=== PATIENT | male | born 1980 | race Caucasian/White ===

== ENCOUNTER 2020-01-04 18:17 | Emergency (ER) | payer SELFPAY ==
[~2020-01-04] VITALS: Ht 177.8 cm; Wt 91.0 kg
[2020-01-04 19:55] VITALS: BP 127/79
== END 2020-01-04 20:03 | disposition home or self-care (01) ==
LOC: ER 18:17
DX: L03.115 Cellulitis of right lower limb (principal); E11.9 Type 2 diabetes mellitus without complications
CPT/HCPCS: 99283

== ENCOUNTER 2020-02-20 18:58 | Emergency (ER) | payer SELFPAY ==
[~2020-02-20] VITALS: Ht 177.8 cm; Wt 94.0 kg
[2020-02-20 19:07] VITALS: BP 135/79
[2020-02-20] MEDS ORDERED: BACITRACIN ZINC OINT UDPKT TOP ONE (20:30)
[2020-02-20] MEDS ORDERED: LIDOCAINE HCL/PF 1% 10 MG/ML 5ML VIAL IJ ONE (20:30)
== END 2020-02-20 21:33 | disposition home or self-care (01) ==
LOC: ER 18:58
DX: S91.215A Laceration without foreign body of left lesser toe(s) with damage to nail, initial encounter (principal); E11.9 Type 2 diabetes mellitus without complications; Z91.14 Patient's other noncompliance with medication regimen; X58.XXXA Exposure to other specified factors, initial encounter; Y93.89 Activity, other specified; Y92.89 Other specified places as the place of occurrence of the external cause; Y99.8 Other external cause status
CPT/HCPCS: 82962; 99283; J3490

== ENCOUNTER 2021-01-05 06:05 | Emergency (ER) | payer MEDICAID ==
[~2021-01-05] VITALS: Ht 177.8 cm; Wt 91.0 kg
[2021-01-05] MEDS ORDERED: CEPH500T MT (09:01)
[2021-01-05] MEDS ORDERED: ACETAMINOPHEN 325MG TABLET PO ONE (09:15)
[2021-01-05 09:50] VITALS: BP 149/85
== END 2021-01-05 09:51 | disposition home or self-care (01) ==
LOC: ER 06:05
DX: L03.031 Cellulitis of right toe (principal); E11.9 Type 2 diabetes mellitus without complications; F12.10 Cannabis abuse, uncomplicated
CPT/HCPCS: 82962; 99282